=== PATIENT | male | born 1990 | race Caucasian/White ===

== ENCOUNTER 2016-08-13 17:42 | Emergency (ER) | payer OTHER ==
[2016-08-13 18:40] LABS: HEMOGLOBIN 13.9 gm/dl (14.0-17.5); RED BLOOD COUNT 4.53 M/UL (4.20-5.50); WHITE BLOOD COUNT 9.7 K/UL (4.5-11.0)
[2016-08-13 19:24] LABS: BUN/CREATININE RATIO 13 (0-10)
== END 2016-08-13 21:24 | disposition home or self-care (01) ==
LOC: ER1 17:42
PROVIDERS: Emergency Medicine
DX: N12 Tubulo-interstitial nephritis, not specified as acute or chronic (principal); Z87.442 Personal history of urinary calculi
CPT/HCPCS: 36415; 80053; 81001; 82150; 83690; 85025; 87086; 96365; 96375; 99284; J0696; J1885; J2405; J7050

== ENCOUNTER 2020-03-25 22:49 | Emergency (ER) | payer OTHER ==
[~2020-03-25 22:49] MED LIST: IBUPROFEN600 MG PO; PENVEE K 500 M500 MG PO
== END 2020-03-26 00:30 | disposition left against medical advice (07) ==
LOC: ER1 22:49
DX: R10.9 Unspecified abdominal pain (principal); Z53.21 Procedure and treatment not carried out due to patient leaving prior to being seen by health care provider